=== PATIENT | male | born 1985 | race Caucasian/White ===

== ENCOUNTER → 2022-08-16 12:11 | Outpatient (CLI) | payer MEDICAID, SELFPAY ==
--- NOTE | 2022-08-16 11:00 | DI.US_ITS ---
Exam(s) US SCROTUM EXAM: US SCROTUM CLINICAL HISTORY: Right testicular pain/swelling/? Torsion / Hernia, N50.811. TECHNIQUE: Scrotal ultrasound performed using grayscale, color-flow and spectral Doppler analysis. COMPARISON: No exams were available for comparison FINDINGS: Right testicle: 4.6 x 2.8 x 3.6 cm Left testicle: 4.7 x 2.5 x 2.8 cm Echogenicity: Normal. Contour: Smooth. Mass: None seen. Microlithiasis: Few scattered microliths left testicle. Hydrocele: None. Variocele: None. Hernia: No peristalsing bowel loop identified. Epididymis: Right 2 small cysts. Left normal. DOPPLER: Color: Symmetric and uniform, no hyperemia. Duplex: Bilateral testicular arterial waveforms visualized. IMPRESSION: No evidence of torsion or hernia. Small right epididymal head cysts. DATA REPOSITORY:
== END ==
PROVIDERS: Visit Provider Nurse Practitioner Family
DX: N50.811 Right testicular pain (principal); N50.3 Cyst of epididymis
CPT/HCPCS: 76870

== ENCOUNTER 2025-08-09 13:26 | Emergency (ER) | payer OTHER, SELFPAY ==
[2025-08-09 13:32] VITALS: BP 142/80; PULSE 92; RESP 18; TEMP 36.6; O2SAT 100
--- NOTE | 2025-08-09 13:50 | ED.GENADUL_ITS ---
Discharge Plan Disposition Patient Disposition: Home Condition: Stable Discharge Details Clinical Impression: Acute viral syndrome Primary Care Provider: [facility],[place] ED Provider: Kristopher Cooper Home Meds and New Rx's Prescriptions: No Action No Known Home Meds Discharge Instructions Instructions: Cough, runny nose, and the common cold Additional Instructions: You were seen in the emergency department for your cough and cold syndrome for the past few days. Please continue with OTC cold medicines, return for any respiratory distress or other emergent concerns Stand Alone Forms: Work Release Referrals: [facility],[place] [Primary Care Provider, Medicine] Discharge Data Discharge Date/Time-TO BE ENTERED AT DEPARTURE: 08/09/25 14:03 HPI General Date/Time Provider Initiated Documentation: 08/09/25 13:40 . HPI Narrative: 39 year-old male presents to ED today by POV/ambulating with a chief complaint of upper respiratory infection with onset Tuesday- feels he is improving. Quality described as nasal congestion mostly- lookin for permisson to return to work as he missed 3 days this week, no radiation to active fever, respiratory distress, chest pain, profound lethargy, nausea or vomiting. Severity is described as mild. Palliating factors include nothing specific. Provoking factors include nothing specific. Events leading up to the incident/Associated Symptoms: Patient refusing COVID testing. Patient not anticoagulated. Related Data Home Medications ?Medication ?Instructions ?Recorded ?Confirmed Unknown [No Known Home Meds] 08/16/22 1 Allergies Allergy/AdvReac Type Severity Reaction Status Date / Time No Known Allergies Allergy Verified 08/09/25 13:36 General Stated Complaint: RespSymp SHLOMO: 4 Review of Systems All systems reviewed & are unremarkable except as noted in HPI and below Exam Narrative Exam Narrative: GENERAL APPEARANCE: Well-nourished, non-toxic, awake and alert, atraumatic, no acute distress. SKIN: Warm, pink, dry, intact, without rashes/lesions/ulcerations. HEAD: Normocephalic, atraumatic, normal hair distribution for gender/age. EYES: Normal conjunctiva, no exudates on lids/lashes. ENT: Nares patent, no circumoral cyanosis, no facial swelling, benign posterior oropharynx NECK: Supple, trachea midline, painless cervical ROM. LUNGS/CHEST: Lungs CTA bilaterally- no rhonchi/rales/wheezes diffusely, non- labored respirations, normal A/P diameter, symmetrical expansion, no chest wall deformity HEART (CV/PV): Regular rate and rhythm without murmur, no peripheral edema, no JVD. ABDOMEN: Soft, non-distended, no guarding, no tenderness. MSK: Normal ROM, no swelling/deformity to bilateral UEs or LEs, moving all extremities without weakness, no cyanosis, spine midline without tenderness, normal curvature. NEURO: Mental Status AAOx4 - alert to person, place, time, events No facial droop, no forehead involvement. Motor: No focal weakness - strength 5/5 in bilateral UEs and LEs, proximal and distal, symmetric. Sensory: sensation intact to light touch globally. Gait normal: patient ambulated without ataxia into ED room. PSYCH: euthymic, cooperative, pleasant, appropriate speech Course Vital Signs Vital signs: Vital Signs Temperature 36.6 C 08/09/25 13:32 Pulse 92 H 08/09/25 13:32 Respiratory Rate 18 08/09/25 13:32 Blood Pressure 142/80 H 08/09/25 13:32 Pulse Oximetry 100 08/09/25 13:32 Temperature 36.6 C 08/09/25 13:32 Temperature Source Oral 08/09/25 13:32 Pulse 92 H 08/09/25 13:32 Respiratory Rate 18 08/09/25 13:32 Blood Pressure 142/80 H 08/09/25 13:32 Blood Pressure Position Sitting 08/09/25 13:32 Pulse Oximetry 100 08/09/25 13:32 Oxygen Delivery Method Room Air 08/09/25 13:32 Oxygen Flow Rate 0 08/09/25 13:32 Pain Level 0 08/09/25 13:32 Medical Decision Making This dictation utilizes [id number] dictation software and may contain unedited grammatical errors. 39 year-old male presents to ED today by POV/ambulating with a chief complaint of upper respiratory infection with onset Tuesday- feels he is improving. Quality described as nasal congestion mostly- lookin for permisson to return to work as he missed 3 days this week, no radiation to active fever, respiratory distress, chest pain, profound lethargy, nausea or vomiting. Severity is described as mild. Palliating factors include nothing specific. Provoking factors include nothing specific. Events leading up to the incident/Associated Symptoms: Patient refusing COVID testing. Patients' medical history: Negative, otherwise healthy. Family and social history: Noncontributory. Pertinent exam findings / vital signs include lungs CTA, benign posterior oropharynx, no respiratory distress. Differential / pathologies of concern include upper respiratory infection. Diagnostic studies of: - Patient refusing testing and imaging. Interventions of: - No intervention needed, patient has completely stable vitals and appears relatively healthy here for work note. ED Course/Assessment/Plan: 39-year-old male presents with upper respiratory infection and nasal congestion requesting work note to return to work, he missed 3 days which is work requires a work note. He is in no respiratory distress is clear lungs and his vitals are stable and nontoxic, reasonable for him to return to work, counseled on OTC medicines for respiratory illness. Findings not consistent with hypoxic respiratory failure, pneumonia, sepsis, toxic vitals. Disposition of acute viral syndrome. Patient verbalized understanding of the plan and return to ED criteria and engaged in shared decision making. Medical Records Medical records reviewed: Yes I reviewed the patient's medical records. [facility] All Active Problems (Updated 08/09/25 @ 13:56 by CHANDAN Bustos) Acute viral syndrome (Acute) Depression (Chronic) Treated at [facility] in [place], [place] Testicular pain, right (Acute) Social History Smoking/Tobacco Use Status: Current every day Quit status: not considering quitting Smoking risk assessment performed?: Yes Alcohol Intake: never Drug use: Never Substance use type: does not use Do you feel safe at home: Yes Do you feel safe in your relationship?: Yes
[2025-08-09 13:52] VITALS: BP 142/80; PULSE 92; RESP 18; TEMP 36.6; O2SAT 100
== END 2025-08-09 14:03 | disposition home or self-care (01) ==
PROVIDERS: Emergency Provider Physician Assistant
DX: R05.9 Cough, unspecified (principal); B34.9 Viral infection, unspecified
CPT/HCPCS: 99282; 99281